=== PATIENT | male | born 1955 | race Caucasian/White ===

== ENCOUNTER 2018-03-13 12:57 | Emergency (ER) | payer OTHER ==
[2018-03-13] MEDS ORDERED: PROPARACAINE 0.5% OP 15ML BTL OD ONE (13:05)
--- NOTE | 2018-03-13 13:07 | ER Report ---
History and Physical Time Seen By MD: 13:06 HPI/ROS CHIEF COMPLAINT: Left eye pain HISTORY OF PRESENT ILLNESS: 62-year-old male patient presents to emergency room with complaint of left eye pain. Patient states he's been having pain in the left eye since he got up this morning. He states that he is traveling from [place] to [place] to see his son. He states that he stayed and saw [place] last night. He had gone to dinner with his brother and his family. States that they had gone to bed that night and when he woke up this morning his eye was hurting. He states that has a hard time keeping his eye open because it is more painful with the eye open. He states that looking out of the left eye seems foggy. He has not taken any medication for this. He did put his contacts and assuming that that would help. However he had to take them out after several hours because of his hurting. He denies any injury to the eye. He denies any problems prior to today. REVIEW OF SYSTEMS: Respiratory: No cough, no dyspnea. Cardiovascular: No chest pain, no palpitations. Gastrointestinal: No vomiting, no abdominal pain. Musculoskeletal: No back pain. Home Meds Reported Medications Atorvastatin Calcium (ATORVASTATIN CALCIUM) 20 Mg Tablet, 1 TAB PO QDAY, TAB 03/13/18 Past Medical/Surgical History Patient has a past medical history of hyperlipidemia, alcohol use. Patient has a surgical history of hernia repair. Reviewed Nurses Notes: Yes Constitutional Vital Sign - Last 24 Hours 03/13/18 03/13/18 13:04 13:40 Temp 97.7 Pulse 90 Resp 20 B/P (MAP) 141/95 140/84 (102) Pulse Ox 96 O2 Delivery Room Air Physical Exam General Appearance: The patient is alert, has no immediate need for airway protection and no current signs of toxicity. Eyes: Pupils equal and round no injection. Extraocular movements intact. A fluorescein exam was done. Patient does have a corneal abrasion just over the pupil of the left eye. Respiratory: Chest is non tender, lungs are clear to auscultation. Cardiac: regular rate and rhythm Gastrointestinal: Abdomen is soft and non tender, no masses, bowel sounds normal. Musculoskeletal: Neck: Neck is supple and non tender. Extremities have full range of motion and are non tender. Skin: No rashes or lesions. DIFFERENTIAL DIAGNOSIS: After history and physical exam differential diagnosis was considered for corneal abrasion, increased intraocular pressure, conjunctivitis. Medical Decision Making ED Course/Re-evaluation ED Course Patient was admitted to exam room, history and physical were obtained. Differential diagnoses were considered. On examination lungs are clear, heart was regular, abdomen was soft and nontender. Extraocular movements were intact. A fluorescein exam was done which did show a corneal abrasion over the pupil. I discussed the findings with the patient. I believe that is likely the cause of his discomfort. We'll go ahead and put him on antibiotics, Tobrex, and have him follow-up with his eye doctor when he returns to [place]. I anticipate he'll have improvement over the next 2-3 days. He is return to emergency room if condition worsens. Patient verbalized understanding and agreement with plan. Decision to Disposition Date: Mar 13, 2018 Decision to Disposition Time: 13:42 Depart Departure Latest Vital Signs Vital Signs Date Time Temp Pulse Resp B/P (MAP) Pulse Ox O2 Delivery O2 Flow Rate FiO2 03/13/18 13:40 140/84 (102) 03/13/18 13:04 97.7 90 20 96 Room Air Impression: Primary Impression: Corneal abrasion Condition: Improved Disposition: HOME OR SELF-CARE Patient Instructions: Corneal Abrasion (ED) Additional Instructions: Take the antibiotic eye drops; 2 drops 4 times a day for the next week. Wear your glasses for the next week. Return to the ER if condition worsens. Follow up with your eye doctor when you return home to [place]. Problem Qualifiers Primary Impression: Corneal abrasion Encounter type: initial encounter Laterality: left Qualified Codes: S05.02XA - Injury of conjunctiva and corneal abrasion without foreign body, left eye, initial encounter BEATRIZ ALLEN Mar 13, 2018 13:06
[2018-03-13] MEDS ORDERED: ATOR20TA65 PO (13:08)
[2018-03-13] MEDS ORDERED: PROPARACAI/FLUORESCEIN 5 ML OP DROPS OU ONE (13:20)
[2018-03-13 13:40] VITALS: BP 140/84
[2018-03-13] MEDS ORDERED: TOBRAMYCIN 0.3% OP SOLN 5 ML OS ONE (13:40)
== END 2018-03-13 13:55 | disposition home or self-care (01) ==
LOC: ER 13:00
DX: S05.02XA Injury of conjunctiva and corneal abrasion without foreign body, left eye, initial encounter (principal)
CPT/HCPCS: 99283